=== PATIENT | female | born 2000 | race Caucasian/White ===

== ENCOUNTER 2022-07-23 15:55 | Emergency (ER) | payer OTHER, MEDICAID, SELFPAY ==
[2022-07-23 16:11] VITALS: BP 114/76; PULSE 102; RESP 22; TEMP 36.8; O2SAT 99; BMI 19.6
--- NOTE | 2022-07-23 16:28 | PC.NURSE ---
RT assisted with spacer training and pt took 2 puffs
--- NOTE | 2022-07-23 16:52 | ED.GENADULT ---
HPI - General Adult General Chief complaint: Upper Respiratory Symptoms Stated complaint: Asthma attack, Dyspnea Time Seen by Provider: 07/23/22 16:48 Source: patient Mode of arrival: Ambulatory Limitations: no limitations History of Present Illness HPI narrative: Patient is a 22-year-old female. She does have a history of asthma. 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 She states she is here for several days of wheezing and coughing. She has been doing her albuterol inhaler without any improvement of symptoms. No fevers. No chest pain. Related Data Previous Rx's Medication Instructions Recorded prednisone 20 mg tablet 20 mg PO DAILY 2 days #2 tabs 07/23/22 Allergies Allergy/AdvReac Type Severity Reaction Status Date / Time diphenhydramine AdvReac Severe Difficulty Verified 07/23/22 16:15 [From Benadryl] Breathing Review of Systems Constitutional Constitutional: Reports system reviewed and no additional complaints, except as documented Cardiovascular Cardiovascular: Reports system reviewed and no additional complaints, except as documented Respiratory Respiratory: Reports system reviewed and no additional complaints, except as documented Integumentary/Breasts Skin/Breast: Reports system reviewed and no additional complaints, except as documented Hematologic/Lymphatic On Anticoagulants: No Patient History Social History Smoking Status: Current every day smoker Smoking Status: Current every day smoker alcohol intake frequency: a few times a month Substance Use Type: marijuana Exam Initial Vital Signs Initial Vital Signs: Vital Signs Temperature 98.3 F 07/23/22 16:11 Pulse Rate 102 H 07/23/22 16:11 Respiratory Rate 22 07/23/22 16:11 Blood Pressure 114/76 07/23/22 16:11 Pulse Oximetry 99 07/23/22 16:11 Oxygen Delivery Method Room Air 07/23/22 16:11 Const General: cooperative and comfortable HENMT Head: normal to inspection and normocephalic Resp Effort & Inspection: normal respiratory effort Auscultation: clear to auscultation bilaterally Cardio Rate: regular rate Rhythm: regular rhythm GI Inspection: normal to inspection Skin General: no rashes or lesions noted Neuro General: patient alert, patient awake, patient oriented x3 and moves all extremities Extrem General: capillary refill normal Course Orders Ordered: ED Orders 07/23/22 16:18 COVID19 -Nasal RAPID Stat 07/23/22 16:25 RT Consult Eval and Treat NOW Discontinued Medications Albuterol (Albuterol Hfa Mdi 60 Puff/8 Gm Inhaler) 1 puff INH NOW ONE Stop: 07/23/22 16:53 Albuterol (Albuterol 2.5 Mg/3 Ml Neb (Adult)) 2.5 mg INH NOW ONE Stop: 07/23/22 17:01 Prednisone (Prednisone 20 Mg Tablet) 20 mg PO NOW ONE Stop: 07/23/22 16:53 Vital Signs Vital signs: Vital Signs - 8 hr 07/23/22 16:11 Temperature 98.3 F Pulse Rate 102 H Respiratory Rate 22 Blood Pressure 114/76 Pulse Oximetry 99 Oxygen Delivery Method Room Air Medical Decision Making Lab Data Lab results reviewed: Yes I reviewed the patient's lab results. Labs: Lab Results 07/23/22 Range/Units 16:18 SARS-CoV-2 (PCR) Negative (Negative) MDM Narrative Medical decision making narrative: COVID test was negative. By the time I evaluated the patient she had received puffs of an albuterol inhaler through a spacer. She stated that she felt much better. Her lungs were clear at the time of my exam. Low suspicion for pneumonia. Low suspicion for ACS. No indication for antibiotics. She was given the results of her COVID test. Will discharge patient home with steroids for the next couple days. She was given return precautions. She expressed understanding and agreement. Discharge Plan Departure Patient Disposition: Home Clinical Impression: Asthma Instructions: Asthma -- Adult Activity Restrictions/Additional Instructions: A prescription for steroids was sent to [facility] per your request. I recommend that you start them tomorrow for the next couple days as directed. Also use your albuterol inhaler as needed. Your COVID test today was negative. Return to the emergency department for new or worsening symptoms. Prescriptions: New prednisone 20 mg tablet 20 mg PO DAILY 2 Days Qty: 2 0RF Stand Alone Forms: Patient Portal/API
[2022-07-23 17:04] LABS: COVID19 -Nasal RAPID Negative (Negative)
[2022-07-23] MEDS: ALBUTEROL HFA MDI 60 PUFF/8 GM INHALER INH (17:18)
[2022-07-23] MEDS: predniSONE 20 MG TABLET PO (17:18)
--- NOTE | 2022-07-23 17:24 | PC.NURSE ---
Pt reports some constipation yesterday but being fine now.
[2022-07-23 17:31] VITALS: BP 134/75; PULSE 91; O2SAT 100
== END 2022-07-23 17:31 | disposition home or self-care (01) ==
PROVIDERS: Emergency Provider Emergency Medicine
DX: J45.909 Unspecified asthma, uncomplicated (principal); R05.9 Cough, unspecified; F17.200 Nicotine dependence, unspecified, uncomplicated
CPT/HCPCS: 87635; 99283; C9803; A9270

== ENCOUNTER 2022-08-04 13:52 | Emergency (ER) | payer OTHER, MEDICAID, SELFPAY ==
[2022-08-04 14:02] VITALS: BP 130/79; PULSE 89; RESP 20; TEMP 37.3; O2SAT 99; BMI 19.6
--- NOTE | 2022-08-04 15:36 | ED_ITS ---
HPI - Ear Problem <Rosana Cedeño PA-C - Last Filed: 08/04/22 16:51> General Chief complaint: Ear Stated complaint: rt ear pain, dizzy, nausea, headache, pressure Time Seen by Provider: 08/04/22 14:38 Source: patient Mode of arrival: Ambulatory History of Present Illness HPI Narrative: 22-year-old female presents with concern for right ear discomfort and URI symptoms. Patient states she woke up this morning with pressure sensation in her right ear and sometimes it feels like there is fluttering in it. She says she is been a little bit nauseous today and has had a bit of a headache. She says the headache is her entire head it is not severe and it is not specific to 1 side. A co-worker recommended she washed out her ear with hydrogen peroxide today and the dizziness started after this. She did have a cold about 2 weeks ago with cough congestion and sore throat these symptoms largely resolved but she had a persistent cough until about 2 days ago when this also resolved. She states she is never had this sensation in her ear before, she is not vaccinated for flu did get her 1st COVID vaccine but no additional vaccines. She states that her boyfriend had the same cold symptoms as she did in the last couple of weeks. She denies any other complaints or concerns including fevers, chills, vomiting, diarrhea, abdominal pain, sore throat, body aches, dysuria, or other--patient has no concern for .. Related Data Previous Rx's Medication Instructions Recorded fluticasone propionate 50 2 spray intranasal DAILY 7 days 08/04/22 mcg/actuation nasal #16 grams spray,suspension (Flonase Allergy Relief) Allergies Allergy/AdvReac Type Severity Reaction Status Date / Time diphenhydramine AdvReac Severe Difficulty Verified 08/04/22 14:10 [From Benadryl] Breathing Review of Systems <Rosana Cedeño PA-C - Last Filed: 08/04/22 16:51> Review of Systems Narrative: See HPI Patient History <Rosana Cedeño PA-C - Last Filed: 08/04/22 16:51> Social History Smoking Status: Current every day smoker Smoking Status: Current every day smoker alcohol intake frequency: a few times a month Substance Use Type: marijuana Exam <Rosana Cedeño PA-C - Last Filed: 08/04/22 16:51> Narrative Exam Narrative: GENERAL: 22 year old patient appears stated age. Well-developed patient, in mild distress. HEAD: Atraumatic. Normocephalic. EYES: Pupils equal round and reactive. Extraocular motions intact. No scleral icterus. No injection or drainage. ENT: Nose without bleeding, purulent drainage. Throat without erythema, tonsillar hypertrophy or exudate. Airway patent. Bilateral ear canals are normal in appearance, the left TM is pearly naylor with cone of light visible. The right TM is slightly injected, there is clear fluid effusion with bubbles present. Patient has shotty anterior cervical chain lymphadenopathy noted bilaterally. NECK: Trachea midline. Non tender CARDIOVASCULAR: Regular rate and rhythm without murmurs, gallops, or rubs. RESPIRATORY: Clear to auscultation. Breath sounds equal bilaterally. No wheezes, rales, or rhonchi. GASTROINTESTINAL: Abdomen nondistended. EXTREMITIES: No edema or joint tenderness. NEURO: AOx3. SKIN: No rash or erythema of visible areas Initial Vital Signs Initial Vital Signs: Vital Signs Temperature 99.1 F 08/04/22 14:02 Pulse Rate 89 08/04/22 14:02 Respiratory Rate 20 08/04/22 14:02 Blood Pressure 130/79 08/04/22 14:02 Pulse Oximetry 99 08/04/22 14:02 Oxygen Delivery Method Room Air 08/04/22 14:02 <Leda Guallpa DO - Last Filed: 08/10/22 19:46> Initial Vital Signs Initial Vital Signs: Vital Signs Temperature 99.1 F 08/04/22 14:02 Pulse Rate 89 08/04/22 14:02 Respiratory Rate 20 08/04/22 14:02 Blood Pressure 130/79 08/04/22 14:02 Pulse Oximetry 99 08/04/22 14:02 Oxygen Delivery Method Room Air 08/04/22 14:02 Course <Rosana Cedeño PA-C - Last Filed: 08/04/22 16:51> Orders Ordered: ED Orders 08/04/22 15:48 Covid-19 + FLU A/B + RSV - PCR Stat Vital Signs Vital signs: Vital Signs - 8 hr 08/04/22 14:02 Temperature 99.1 F Pulse Rate 89 Respiratory Rate 20 Blood Pressure 130/79 Pulse Oximetry 99 Oxygen Delivery Method Room Air <Leda Guallpa DO - Last Filed: 08/10/22 19:46> Orders Ordered: ED Orders 08/04/22 15:48 Covid-19 + FLU A/B + RSV - PCR Stat Vital Signs Vital signs: Vital Signs - 8 hr 08/04/22 14:02 Temperature 99.1 F Pulse Rate 89 Respiratory Rate 20 Blood Pressure 130/79 Pulse Oximetry 99 Oxygen Delivery Method Room Air Medical Decision Making <Rosana Cedeño PA-C - Last Filed: 08/04/22 16:51> Differential Diagnosis Differential Diagnosis: BPPV, middle ear effusion, viral illness Medical Records Medical records reviewed: Yes I reviewed the patient's medical records. Medical records narrative: This is a well-appearing 22-year-old female who presents with concern for dizziness and ear discomfort with headache. Dizziness began after she washed out her right ear with hydrogen peroxide at work today after advice from her co- worker. She had been having ear pressure for a few days in that ear. Exam today is consistent with a middle ear effusion, she recently recovered from a viral illness and suspect that this could be related. Discussed with the patient possibly trying meclizine however she does have an allergy to Benadryl which causes shortness of breath for her and thus after discussion we will not pursue this as a treatment modality. Did discuss with the patient using a nasal decongestant spray as well as trying the Renny maneuver at home. Due to patient feeling somewhat dizzy, do provide a work note for today. I suspect that her dizziness symptoms are associated with a middle ear effusion/problem 2nd to the hydrogen peroxide wash out she performed this morning. Viral testing today for COVID flu and RSV returns negative. Prescription for Flonase. Return precautions provided, follow-up plan discussed, all questions answered. Lab Data Lab results reviewed: Yes I reviewed the patient's lab results. Labs: Lab Results 08/04/22 Range/Units 15:48 SARS-CoV-2 (PCR) Negative (Negative) Influenza A (RT-PCR) Flu a negative (NEGATIVE) Influenza B (RT-PCR) Flu b negative (NEGATIVE) RSV (PCR) Negative (Negative) Point of Care Testing Test Results Negative Urine Dip Bedside Urine Glucose Negative Bedside Urine Bilirubin - Negative Bedside Urine Ketone - Negative Urine Specific [place] 1.005 Bedside Urine Occult Blood - Negative Bedside Urine pH 6.0 Bedside Urine Protein - Negative Bedside Urine Urobilinogen - Negative Bedside Urine Nitrite - Negative Bedside Urine Leukocytes - Negative Esterase Point of care testing: Point of Care Testing Test Results Negative Urine Dip Bedside Urine Glucose Negative Bedside Urine Bilirubin - Negative Bedside Urine Ketone - Negative Urine Specific [place] 1.005 Bedside Urine Occult Blood - Negative Bedside Urine pH 6.0 Bedside Urine Protein - Negative Bedside Urine Urobilinogen - Negative Bedside Urine Nitrite - Negative Bedside Urine Leukocytes - Negative Esterase <Leda Gardenia Guallpa, DO - Last Filed: 08/10/22 19:46> Lab Data Labs: Lab Results 08/04/22 Range/Units 15:48 SARS-CoV-2 (PCR) Negative (Negative) Influenza A (RT-PCR) Flu a negative (NEGATIVE) Influenza B (RT-PCR) Flu b negative (NEGATIVE) RSV (PCR) Negative (Negative) Point of Care Testing Test Results Negative Urine Dip Bedside Urine Glucose Negative Bedside Urine Bilirubin - Negative Bedside Urine Ketone - Negative Urine Specific [place] 1.005 Bedside Urine Occult Blood - Negative Bedside Urine pH 6.0 Bedside Urine Protein - Negative Bedside Urine Urobilinogen - Negative Bedside Urine Nitrite - Negative Bedside Urine Leukocytes - Negative Esterase Point of care testing: Point of Care Testing Test Results Negative Urine Dip Bedside Urine Glucose Negative Bedside Urine Bilirubin - Negative Bedside Urine Ketone - Negative Urine Specific [place] 1.005 Bedside Urine Occult Blood - Negative Bedside Urine pH 6.0 Bedside Urine Protein - Negative Bedside Urine Urobilinogen - Negative Bedside Urine Nitrite - Negative Bedside Urine Leukocytes - Negative Esterase Discharge Plan Departure Patient Disposition: Home Clinical Impression: Acute DWIGHT (middle ear effusion), Vertigo Activity Restrictions/Additional Instructions: *You have been diagnosed with middle ear effusion, vertigo-likely benign paroxysmal positional vertigo. Your viral testing returned negative today. *What to do: *Please continue to take your regular medications as directed. [1] New medication prescriptions sent to your pharmacy: [Flonase] [ ] New medication written as a paper prescription [ ] No new medications given *Please follow up with your primary care provider in 2-3 days, call for an appointment. Let them know you were seen in the Emergency Department and that we ask that you be seen in follow up. We will electronically transmit a record of today's note if your PCP is in our system. As we discussed if you want if he feel the Flonase is not helping you can try the Renny maneuver at home to see if this helps although I suspect that her dizziness is more related to the fluid behind her ear. I did provide you with a work note for today. *If you do not have a primary care provider please contact the [facility] Resource line at [phone]. They will ask some questions about your medical history and help get you set up with a doctor in the community. *Return to Emergency Department if you should have any new, worsening or concerning symptoms, such as [fever greater than 101 F, shaking chills, worsening pain, persistent vomiting or other bothersome symptoms] Prescriptions: New fluticasone propionate [Flonase Allergy Relief] 50 mcg/actuation spray,suspension 2 spray intranasal DAILY 7 Days Qty: 16 0RF Rx Instructions: administer into each nostril Stand Alone Forms: Patient Portal/API, Work Release Note <Leda Guallpa, - Last Filed: 08/10/22 19:46> Cosign ED Attending Coslorenaature Attestation: I was immediately available in the department for consultation. Documentation has been reviewed.
[2022-08-04 16:38] LABS: Influenza A - CEPHEID Flu A NEGATIVE (NEGATIVE); Influenza B - CEPHEID Flu B NEGATIVE (NEGATIVE); Respiratory Syncytial Virus Negative (Negative)
[2022-08-04 16:39] LABS: COVID-19 CEPHEID 4-PLEX PCR Negative (Negative)
== END 2022-08-04 16:53 | disposition home or self-care (01) ==
PROVIDERS: Emergency Provider Student in an Organized Health Care Education/Training Program
DX: H65.192 Other acute nonsuppurative otitis media, left ear (principal); R42 Dizziness and giddiness; Z20.822 Contact with and (suspected) exposure to COVID-19
CPT/HCPCS: 0241U; 81003; 81025; 99282

== ENCOUNTER 2022-08-05 05:44 | Emergency (ER) | payer OTHER, MEDICAID, SELFPAY ==
[2022-08-05 05:52] VITALS: BP 143/102; PULSE 103; RESP 15; TEMP 36.8; O2SAT 99; BMI 19.6
--- NOTE | 2022-08-05 06:34 | ED.EAR ---
HPI - Ear Problem General Chief complaint: Ear Stated complaint: Both Ears ache Time Seen by Provider: 08/05/22 06:30 Source: patient Mode of arrival: Ambulatory History of Present Illness HPI Narrative: Patient is a 22-year-old female with no past medical history presenting today with upper respiratory like symptoms. She was seen evaluated yesterday for right ear pain she reports that this morning she now has left ear pain. History her workup included for packed viral panel which was completely negative, urinalysis also negative. She reports that she is had upper respiratory like symptoms for the last couple weeks but just can not quite get over it. She has heaviness behind her eyes having some shaking and some sweats. She last took Motrin last night nothing today. Vitals are stable this morning without fever, very low-grade tachycardia rate 103 normal blood Related Data Previous Rx's Medication Instructions Recorded fluticasone propionate 50 2 spray intranasal DAILY 7 days 08/04/22 mcg/actuation nasal #16 grams spray,suspension (Flonase Allergy Relief) Allergies Allergy/AdvReac Type Severity Reaction Status Date / Time diphenhydramine AdvReac Severe Difficulty Verified 08/04/22 14:10 [From Benadryl] Breathing Review of Systems Review of Systems ROS Unobtainable: All systems reviewed & are unremarkable except as noted in HPI and below Patient History Social History Smoking Status: Current every day smoker Smoking Status: Current every day smoker alcohol intake frequency: a few times a month Substance Use Type: marijuana Exam Initial Vital Signs Initial Vital Signs: Vital Signs Temperature 98.3 F 08/05/22 05:52 Pulse Rate 103 H 08/05/22 05:52 Respiratory Rate 15 08/05/22 05:52 Blood Pressure 143/102 H 08/05/22 05:52 Pulse Oximetry 99 08/05/22 05:52 Oxygen Delivery Method Room Air 08/05/22 05:52 GENERAL: Alert well-appearing 22-year-old female HEENT: Head atraumatic,EOMI, pupils reactive, face symmetric, moist mucous membranes EARS: Tympanic membranes visualized, no erythema or bulging, no hemotympanum PHARYNX: No erythema no cervical lymphadenopathy no uvula swelling CARDIOVASCULAR: Regular rate and rhythm without murmurs, rubs or gallops. RESPIRATORY: Breath sounds equal bilaterally, no wheezes rales or rhonchi. EXTREMITIES: Normal range of motion, no clubbing or edema. Neurovascularly intact NEUROLOGICAL: Alert and oriented x4. SKIN: Warm, dry, no laceration, no petechiae, no rashes or lesions. Course Orders Ordered: Discontinued Medications Ibuprofen (Ibuprofen 400 Mg Tablet) 800 mg PO NOW ONE Stop: 08/05/22 06:41 Last Admin: 08/05/22 06:47 Dose: 800 mg Vital Signs Vital signs: Vital Signs - 8 hr 08/05/22 05:52 08/05/22 06:49 Temperature 98.3 F Pulse Rate 103 H 85 Respiratory Rate 15 15 Blood Pressure 143/102 H 135/74 Pulse Oximetry 99 99 Oxygen Delivery Method Room Air Room Air Medical Decision Making MDM Narrative Medical decision making narrative: Patient is a 22-year-old female who presents with bilateral ear pain upper respiratory like symptoms. She is mildly tachycardic otherwise appears healthy stable. She would a workup yesterday including viral testing and urinalysis. Exam today does not show any significant evidence otitis media. I suspect that this is all viral. She reports that she is taking she started shaking during my exam in all extremities but not tonic-clonic remained awake alert and oriented. Significantly more than just rigors from fever. She was quickly able to control it and stop it as well. She is also requesting a work note Discharge Plan Departure Patient Disposition: Home Clinical Impression: Acute upper respiratory infection Instructions: DI for Viral Upper Respiratory Infection -- Adult Activity Restrictions/Additional Instructions: *You have been diagnosed with upper respiratory infection *What to do: At this time you have a virus there is no need for antibiotics. Rest and hydrate *Continue to take medications as directed Motrin 600 mg every 6-8 hours if needed for [id number] pain or fever Tylenol 1000 mg every 6 hours if needed for [id number] pain or fever You may try any [id number] allergy medication and take as directed this may or may not help *Follow up with your primary care provider in 2-3 days or call [phone] *Return to ER if you should have difficulty breathing not tolerating fluids [or] any new, worsening or concerning symptoms Prescriptions: No Action fluticasone propionate [Flonase Allergy Relief] 50 mcg/actuation spray,suspension 2 spray intranasal DAILY 7 Days Qty: 16 0RF Rx Instructions: administer into each nostril Stand Alone Forms: Patient Portal/API, Work Release Note
[2022-08-05] MEDS: IBUPROFEN 400 MG TABLET 800 MG PO (06:47)
[2022-08-05 06:49] VITALS: BP 135/74; PULSE 85; RESP 15; O2SAT 99
== END 2022-08-05 06:51 | disposition home or self-care (01) ==
PROVIDERS: Emergency Provider Emergency Medicine
DX: J06.9 Acute upper respiratory infection, unspecified (principal); H92.02 Otalgia, left ear; F17.200 Nicotine dependence, unspecified, uncomplicated
CPT/HCPCS: 99283

== ENCOUNTER 2022-10-07 11:54 | Emergency (ER) | payer OTHER, MEDICAID, SELFPAY ==
[2022-10-07 12:00] VITALS: BP 122/68; PULSE 85; RESP 16; TEMP 36.6; O2SAT 97
--- NOTE | 2022-10-07 13:37 | ED.DENTAL ---
HPI - Dental/Oral General Chief complaint: Dental/Oral Stated complaint: tooth pain rt, fever Time Seen by Provider: 10/07/22 13:07 History of Present Illness HPI Narrative: This is a healthy 22-year-old female with complaint of tooth pain. Patient had a little bit of pain in the last week and then was biting into acute number yesterday thought that she had a seat in her tooth and realized that a portion of her tooth had broken off on her right upper jaw. Patient states a little additional has broken off since then. His painful. No swelling, no warmth, no redness. No fevers. No other complaints. Patient has tried naproxen twice daily without much improvement. Denies any medical issues, no prior surgeries. No known drug allergies other than Benadryl. Does use tobacco, occasional alcohol, uses marijuana no other illicit. She does not have a dentist she states her dental insurance kicks in on October 23. We did discuss that [facility] has a sliding scale might be helpful she would like to be seen sooner. Related Data Previous Rx's Medication Instructions Recorded tramadol 50 mg tablet 50 mg PO Q6H PRN pain #10 tabs 10/07/22 Allergies Allergy/AdvReac Type Severity Reaction Status Date / Time diphenhydramine AdvReac Severe Difficulty Verified 08/04/22 14:10 [From Benadryl] Breathing Review of Systems Review of Systems ROS Unobtainable: All systems reviewed & are unremarkable except as noted in HPI and below Patient History Social History Smoking Status: Current every day smoker Smoking Status: Current every day smoker alcohol intake frequency: a few times a month Substance Use Type: marijuana Exam Narrative Exam Narrative: GEN: well nourished, well appearing female, alert and oriented x 3, patient appears to be in mild distress. HEENT: Atraumatic, pupils are equal round reactive to light, extraocular movements are intact, nares are clear, TMs are clear with no fluid, there is no conjunctival pallor. Throat is clear without any exudates, erythema, tonsillar enlargement or uvular deviation, patient has tooth cracked in half missing portion at tooth 3. On examination. No swelling, no induration. Majority of the root appears intact. HEART: Regular rate and rhythm without murmur, clicks, rubs. No carotid bruits, pulses are equal in upper and lower extremities LUNGS:Lungs clear to auscultation, no wheezes, rales, crackles, chest moves symmetrically ABD:bowel sounds normal, soft, non-tender, no guarding, rebound, rigidity, no masses noted, no hepatosplenomegaly :No CVA tenderness, [male/female exam] MSCL: Non-tender, no muscle atrophy, muscles strength 5/5 upper and lower extremities, full range of motion, normal gait NEURO:CN 2-12 intact, sensation normal, reflexes 2/4 upper and lower extremities. finger nose finger test normal, heel scott test normal, romberg normal Initial Vital Signs Initial Vital Signs: Vital Signs Temperature 97.9 F 10/07/22 12:00 Pulse Rate 85 10/07/22 12:00 Respiratory Rate 16 10/07/22 12:00 Blood Pressure 122/68 10/07/22 12:00 Pulse Oximetry 97 10/07/22 12:00 Oxygen Delivery Method Room Air 10/07/22 12:00 Course Orders Ordered: Discontinued Medications Acetaminophen (Acetaminophen 325 Mg Tablet) 975 mg PO NOW ONE Stop: 10/07/22 13:45 Last Admin: 10/07/22 13:53 Dose: 975 mg Documented By: NR Vital Signs Vital signs: Vital Signs - 8 hr 10/07/22 12:00 Temperature 97.9 F Pulse Rate 85 Respiratory Rate 16 Blood Pressure 122/68 Pulse Oximetry 97 Oxygen Delivery Method Room Air MDM - Dental/Oral MDM Narrative Medical decision making narrative: 22-year-old female with fracture tooth which has been present for about a day or 2. Patient has pain no signs of infection, referred to dentist. Was given a short course of pain medication. Discharge Plan Departure Patient Disposition: Home Clinical Impression: Fracture of tooth Instructions: Tooth Fracture Activity Restrictions/Additional Instructions: Please call to follow up with the dentist for repair or extraction of tooth. You can try [facility], in the short term if you are dental insurance is not activated until the 23 of October. You can take Tylenol up to a 1000 mg every 6 hours and/or naproxen 550mg every 12 hours. If in adequate for pain control you can take 1-2 tramadol every 6 hours as needed for pain. This medication can make you sleepy do not drive, perform hazardous activities or make any major decisions while taking it. This medication will make you constipated please take a stool softener once to twice daily until stools are soft and regular. Prescription sent to [facility] in [place]. Please return for new swelling, redness of your face, mouth, lips tongue or airway, fevers, vomiting or if you are having other new or concerning changes. Prescriptions: New tramadol 50 mg tablet 50 mg PO Q6H PRN (Reason: pain) Qty: 10 0RF Stand Alone Forms: Patient Portal/API, Work Release Note
[2022-10-07] MEDS: ACETAMINOPHEN 325 MG TABLET 975 MG PO (13:53)
== END 2022-10-07 13:58 | disposition home or self-care (01) ==
PROVIDERS: Emergency Provider Emergency Medicine
DX: S02.5XXA Fracture of tooth (traumatic), initial encounter for closed fracture (principal)
CPT/HCPCS: 99282; 99283

== ENCOUNTER 2023-03-24 14:37 | Emergency (ER) | payer SELFPAY ==
[2023-03-24 14:52] VITALS: BP 121/74; PULSE 52; RESP 16; TEMP 36.7; O2SAT 98
--- NOTE | 2023-03-24 15:24 | ED.DENTAL ---
HPI - Dental/Oral <Delia Mcpherson PA-C - Last Filed: 03/24/23 15:29> General Chief complaint: Dental/Oral Stated complaint: tooth infection Time Seen by Provider: 03/24/23 15:11 Source: patient Mode of arrival: Ambulatory History of Present Illness HPI Narrative: 23-year-old female presents to the ED with dental pain for 1 week. Patient broke a right upper tooth in September 2022, is scheduled for extraction on May 08. Patient was seen by her dentist last week, started on antibiotics and ibuprofen for pain control. Patient states that she is now feeling some pain on her lateral to her nose on the right side. Patient denies fever, chills, chest pain, shortness of breath. Related Data Previous Rx's Medication Instructions Recorded tramadol 50 mg tablet 50 mg PO Q6H PRN pain #10 tabs 10/07/22 ondansetron 4 mg disintegrating 4 mg PO Q8H PRN nausea and 03/24/23 tablet vomiting #20 tabs Allergies Allergy/AdvReac Type Severity Reaction Status Date / Time diphenhydramine AdvReac Severe Difficulty Verified 08/04/22 14:10 [From Benadstevenl] Breathing Review of Systems <Delia Mcpherson PA-C - Last Filed: 03/24/23 15:29> Constitutional Constitutional: Denies chills, Denies fatigue, Denies fever(s), Denies frequent falls, Denies lethargy and Denies weakness Eyes Eyes: Denies change in vision, Denies eye discharge, Denies irritation and Denies loss of vision ENT Ears, Nose, Mouth, and Throat: Denies change in voice, Reports dental pain, Denies dizziness, Denies neck pain, Denies sore throat and Denies throat swelling Cardiovascular Cardiovascular: Denies chest pain, Denies irregular heart rhythm, Denies lightheadedness, Denies palpitations, Denies dyspnea, Denies dyspnea on exertion and Denies orthopnea Respiratory Respiratory: Denies cough, Denies dyspnea, Denies dyspnea on exertion and Denies wheezing Gastrointestinal Gastrointestinal: Denies abdominal pain, Denies change in bowel habits, Denies diarrhea, Denies nausea and Denies vomiting Musculoskeletal Musculoskeletal: Denies neck pain and Denies numbness Integumentary/Breasts Skin/Breast: Denies pruritus, Denies erythema, Denies rash and Denies wounds Neurologic Neurologic: Denies behavioral changes, Denies confusion, Denies dizziness, Denies frequent falls, Denies loss of vision, Denies numbness and Denies weakness Psychiatric Psychiatric: Denies anxiety, Denies behavioral changes, Denies confusion, Denies depression, Denies homicidal ideation and Denies suicidal ideation Endocrine Endocrine: Denies fatigue, Denies flushing and Denies palpitations Hematologic/Lymphatic Hematologic/Lymphatic: Denies easy bruising Allergic/Immunologic Allergic/Immunologic: Denies urticaria, Denies throat swelling and Denies wheezing Patient History <Delia Mcpherson PA-C - Last Filed: 03/24/23 15:29> Social History Smoking Status: Former smoker Smoking Status: Former smoker tobacco type: vaping alcohol intake frequency: a few times a month Substance Use Type: marijuana Exam <Delia Mcpherson PA-C - Last Filed: 03/24/23 15:29> Narrative Exam Narrative: Const General:?cooperative, healthy appearing and comfortable [facility] Head:?normal to inspection Ears:?hearing grossly normal bilaterally Nose:?external nose normal Face and sinus:?normal facial exam and sinuses nontender Mouth:?oral mucosae normal; there is a broken tooth on the right upper side, which is tender to palpation. Throat:?posterior oropharynx normal Eyes General:?appearance normal, both eyes and all related structures Neck Neck:?normal visual inspection and no lymphadenopathy noted Resp Effort & Inspection:?normal respiratory effort Auscultation:?clear to auscultation bilaterally Cardio Rate:?regular rate Rhythm:?regular rhythm Neuro General:?patient alert, patient awake and patient oriented x3 Initial Vital Signs Initial Vital Signs: Vital Signs Temperature 98.1 F 03/24/23 14:52 Pulse Rate 52 L 03/24/23 14:52 Respiratory Rate 16 03/24/23 14:52 Blood Pressure 121/74 03/24/23 14:52 Pulse Oximetry 98 03/24/23 14:52 Oxygen Delivery Method Room Air 03/24/23 14:52 <Yuri Zapata MD - Last Filed: 04/03/23 10:12> Initial Vital Signs Initial Vital Signs: Vital Signs Temperature 98.1 F 03/24/23 14:52 Pulse Rate 52 L 03/24/23 14:52 Respiratory Rate 16 03/24/23 14:52 Blood Pressure 121/74 03/24/23 14:52 Pulse Oximetry 98 03/24/23 14:52 Oxygen Delivery Method Room Air 03/24/23 14:52 Course <Delia Mcpherson PA-C - Last Filed: 03/24/23 15:29> Vital Signs Vital signs: Vital Signs - 8 hr 03/24/23 14:52 Temperature 98.1 F Pulse Rate 52 L Respiratory Rate 16 Blood Pressure 121/74 Pulse Oximetry 98 Oxygen Delivery Method Room Air <Yuri Zapata MD - Last Filed: 04/03/23 10:12> Vital Signs Vital signs: Vital Signs - 8 hr 03/24/23 14:52 Temperature 98.1 F Pulse Rate 52 L Respiratory Rate 16 Blood Pressure 121/74 Pulse Oximetry 98 Oxygen Delivery Method Room Air MDM - Dental/Oral <Delia Mcpherson PA-C - Last Filed: 03/24/23 15:29> MDM Narrative Medical decision making narrative: 23-year-old female presents to the ED with dental pain for 1 week. Patient's pain appears to be dental in origin, with a face pain likely due to nerve pain relating to the nerve in awaiting the broken tooth. Recommend appropriate doses of ibuprofen and Tylenol for pain control. Recommend continuing the antibiotic as prescribed. Recommend follow-up with her dentist at [facility] as soon as possible to see if the tooth can be extracted earlier than scheduled. ED return precautions discussed with patient. Patient verbalized understanding. Medical records reviewed: Yes Discharge Plan Departure Patient Disposition: Home Clinical Impression: Toothache Instructions: DI for Dental Pain Activity Restrictions/Additional Instructions: You were evaluated in the ED today for dental pain. It appears that you are on the right antibiotic, please take that as prescribed. You may take 800 mg of ibuprofen every 8 hours with food for pain control. You may also take 1000 mg of Tylenol every 8 hours for additional pain control. Please follow-up with your dentist at [facility] as soon as possible to see if they can extract the tooth earlier than scheduled. Return to the ED if you have worsening symptoms, fever, chills, persistent vomiting. Prescriptions: New ondansetron 4 mg tablet,disintegrating 4 mg PO Q8H PRN (Reason: nausea and vomiting) Qty: 20 0RF No Action tramadol 50 mg tablet 50 mg PO Q6H PRN (Reason: pain) Qty: 10 0RF Stand Alone Forms: Patient Portal/API ED Sign-out <Yuri Zapata MD - Last Filed: 04/03/23 10:12> Cosign ED Attending Cosignature Attestation: I was immediately available in the department for consultation. This documentation has been reviewed and I agree with assessment and plan. Supervised by Yuri Zapata MD
== END 2023-03-24 15:29 | disposition home or self-care (01) ==
PROVIDERS: Emergency Provider Student in an Organized Health Care Education/Training Program
DX: K08.89 Other specified disorders of teeth and supporting structures (principal)
CPT/HCPCS: 99281; 99282

== ENCOUNTER 2023-06-02 15:44 | Emergency (ER) | payer OTHER, SELFPAY ==
[2023-06-02 15:49] VITALS: BP 120/87; PULSE 97; RESP 20; TEMP 37.1; O2SAT 100; BMI 20.7
--- NOTE | 2023-06-02 16:19 | ED_ITS ---
HPI - Recheck/Abnormal Lab/Rx <INGA Bates - Last Filed: 06/02/23 16:26> General Chief Complaint: Recheck/Abnormal Lab/Rx Stated Complaint: bayleaf stuck in throat Time Seen by Provider: 06/02/23 15:57 Source: patient Mode of arrival: Ambulatory History of Present Illness HPI narrative: 23-year-old female presents to the emergency department with sensation of a foreign body in her throat. Patient was eating a stool last evening and believes she got a bay leaf stuck in her throat. Patient is able to breathe normally, eat and drink without difficulty and able to swallow her own saliva. Patient reports that it feels irritated back there and despite drinking plenty of fluid and eating bread, has not been able to get the sensation to pass. Related Data Previous Rx's Medication Instructions Recorded tramadol 50 mg tablet 50 mg PO Q6H PRN pain #10 tabs 10/07/22 ondansetron 4 mg disintegrating 4 mg PO Q8H PRN nausea and 03/24/23 tablet vomiting #20 tabs Allergies Allergy/AdvReac Type Severity Reaction Status Date / Time diphenhydramine AdvReac Severe Difficulty Verified 08/04/22 14:10 [From Benannel] Breathing Review of Systems <INGA Bates - Last Filed: 06/02/23 16:26> Review of Systems Narrative: Narrative: See HPI. GENERAL: Denies chills, fatigue, fever, sweats. HEENT: Denies sinus pain, ear pain, sore throat, difficulty swallowing, dizziness. Endorses sensation of foreign body in throat. RESPIRATORY: Denies dyspnea, cough, wheezing, sputum. CARDIOVASCULAR: Denies chest pain, palpitations, edema. GASTROINTESTINAL: Denies nausea, vomiting, abdominal pain, diarrhea, constipation. MSK: Denies weakness, joint pain, or bony pain. SKIN: Denies rash, skin lesions, or pruritis. NEUROLOGIC: Denies weakness, dizziness, headache, numbness, confusion. Patient History <INGA Bates - Last Filed: 06/02/23 16:26> Social History Smoking Status: Former smoker Smoking Status: Former smoker tobacco type: vaping alcohol intake frequency: a few times a month Substance Use Type: marijuana Exam <INGA Bates - Last Filed: 06/02/23 16:26> Narrative Exam Narrative: Exam Narrative: GENERAL: This is a well-nourished, well-developed patient, in no acute distress. HEAD: Atraumatic. Normocephalic. ENT: Nose without bleeding, purulent drainage. Throat without erythema, tonsillar hypertrophy or exudate. Uvula midline. Airway patent. NECK: Trachea midline. No JVD or lymphadenopathy. Nontender. CARDIOVASCULAR: Regular rate and rhythm without murmurs, peripheral pulses intact, cap refill <2 sec. RESPIRATORY: Breath sounds equal and clear bilaterally. No wheezes, rales, or rhonchi. No cough. No increased respiratory effort. No accessory muscle use. MSK: Moves all extremities. Normal range of motion, no clubbing or edema. Neurovascularly intact. NEURO: A&O x 3. SKIN: Warm, dry, no rashes or lesions noted. Initial Vital Signs Initial Vital Signs: Vital Signs Temperature 98.8 F 06/02/23 15:49 Pulse Rate 97 H 06/02/23 15:49 Respiratory Rate 20 06/02/23 15:49 Blood Pressure 120/87 06/02/23 15:49 Pulse Oximetry 100 06/02/23 15:49 Oxygen Delivery Method Room Air 06/02/23 15:49 Reviewed <Ty Mortensen DO - Last Filed: 06/02/23 16:36> Initial Vital Signs Initial Vital Signs: Vital Signs Temperature 98.8 F 06/02/23 15:49 Pulse Rate 97 H 06/02/23 15:49 Respiratory Rate 20 06/02/23 15:49 Blood Pressure 120/87 06/02/23 15:49 Pulse Oximetry 100 06/02/23 15:49 Oxygen Delivery Method Room Air 06/02/23 15:49 Course <INGA Bates - Last Filed: 06/02/23 16:26> Vital Signs Vital signs: Vital Signs - 8 hr 06/02/23 15:49 Temperature 98.8 F Pulse Rate 97 H Respiratory Rate 20 Blood Pressure 120/87 Pulse Oximetry 100 Oxygen Delivery Method Room Air <Ty Mortensen DO - Last Filed: 06/02/23 16:36> Vital Signs Vital signs: Vital Signs - 8 hr 06/02/23 15:49 Temperature 98.8 F Pulse Rate 97 H Respiratory Rate 20 Blood Pressure 120/87 Pulse Oximetry 100 Oxygen Delivery Method Room Air MDM - Recheck/Abnormal Lab/Rx <Ty IsaacsINGA - Last Filed: 06/02/23 16:26> Differential Diagnosis Differential diagnosis: Likely other (Sensation of foreign body in throat) MDM Narrative Medical decision making narrative: 23-year-old female with sensation foreign body (ie: bay leaf) in throat. Assessment was completely unremarkable with no airway compromise. Discussed case with Dr. Mortensen. Discussed with patient how a x-ray would probably not show a bay leaf in her throat, but explained that our biggest concern is airway compromise. Patient unhappy that we are not able to do an endoscopy in the emergency department to remove object. Informed patient that this should resolve on its own and that for worsening symptoms that include difficulty breathing, inability to swallow her own saliva or intolerable pain, she should return to the emergency room immediately. Patient verbalized understanding but was not happy about not having her offending object removed. Discharge Plan Departure Patient Disposition: Home Clinical Impression: Feeling of foreign body in throat Activity Restrictions/Additional Instructions: *You have been diagnosed with sensation of foreign body in your throat. My assessment was encouraging and I do not suspect anything dangerous. I suspect that the sensation will pass over the next day or so. Please make sure you are eating and drinking normally. For any worsening symptoms that include difficulty breathing, inability to swallow her own saliva, intolerable pain, etc. please return to the emergency department. Otherwise, follow up with your family doctor as needed. *What to do: *Please continue to take your regular medications as directed. [ ] New medication prescriptions sent to your pharmacy: [ ] [ ] New medication written as a paper prescription [x ] No new medications given *Please follow up with your primary care provider in 2-3 days, call for an appointment. Let them know you were seen in the Emergency Department and that we ask that you be seen in follow up. We will electronically transmit a record of today's note if your PCP is in our system *If you do not have a primary care provider please contact the [facility] Resource line at [phone]. They will ask some questions about your medical history and help get you set up with a doctor in the community. ? Return to ER if you should have any new, worsening or concerning symptoms, such as worsening pain, severe headache, confusion, chest pain, difficulty breathing, fever greater than 101 F, shaking chills, persistent vomiting to the point that you cannot drink fluids, or other new or worsening symptoms. Prescriptions: No Action tramadol 50 mg tablet 50 mg PO Q6H PRN (Reason: pain) Qty: 10 0RF ondansetron 4 mg tablet,disintegrating 4 mg PO Q8H PRN (Reason: nausea and vomiting) Qty: 20 0RF Referrals: Miscellaneous,Doctor, MD [Primary Care Provider] - Stand Alone Forms: Patient Portal/API ED Sign-out <Ty Mortensen, - Last Filed: 06/02/23 16:36> Cosign ED Attending Cosignature Attestation: Dr Mortensen Co-Sign Statement: [facility]. This chart is signed by myself for administrative purposes only. I did not have direct contact with this patient during this visit. They were seen independently by the [facility].
== END 2023-06-02 16:30 | disposition home or self-care (01) ==
PROVIDERS: Emergency Provider Registered Nurse
DX: R09.A2 Foreign body sensation, throat (principal)
CPT/HCPCS: 99281; 99282